=== PATIENT | female | born 1950 | race Caucasian/White ===

== ENCOUNTER → 2021-02-17 | Outpatient (CLI) | payer MEDICARE, OTHER ==
[~2021-02-17] MED LIST: ASTELIN NASAL S34 ML NS; BROMELAIN PO; CALCIUM600 M2 PO; FLEXERIL5 MG PO; GLUCOSAMINE & C1 CA1 PO; LOPID 600M600 MG/TAB PO; MAGNESIUM250 M1 PO; MICARDIS40 MG PO; MOBIC15 MG PO; MULTIPLE VITAMI1 TAB PO; NEURONTIN300 MG/CAP PO; PREMARIN .3MG0.3 MG PO; SINGULAIR 110 MG/TAB PO; XOPENEX HF0.045 MG/A IH; ZANTAC 150MG T150 MG PO; ZINC50 MG PO; ZYRTEC 10MG10 MG PO
== END ==
LOC: COL.RAD 12:34
DX: I65.22 Occlusion and stenosis of left carotid artery (principal)
CPT/HCPCS: Q9967